=== PATIENT | male | born 1940 | race Caucasian/White ===

== ENCOUNTER 2016-07-31 12:13 | Outpatient (CLI) | payer MEDICARE, OTHER | END 2016-07-31 12:14 | disposition home or self-care (01) | DX: R07.2 Precordial pain (principal) ==

== ENCOUNTER 2016-08-27 16:05 | Outpatient (CLI) | payer MEDICARE, OTHER | END 2016-08-27 16:06 | disposition home or self-care (01) | DX: M19.012 Primary osteoarthritis, left shoulder (principal) ==

== ENCOUNTER 2016-12-24 10:15 | Outpatient (CLI) | payer MEDICARE, OTHER ==
[2016-12-24 19:07] LABS: ALBUMIN/GLOBULIN RATIO 1.7 (1.0-2.2); BILIRUBIN,TOTAL 0.8 mg/dL (0.2-1.0); BUN - BLOOD UREA NITROGEN 23 mg/dL (6-20); CALCIUM 9.3 mg/dL (8.5-10.3); CARBON DIOXIDE - CO2 23 mmol/L (21-32); CHLORIDE 109 mmol/L (101-111); CHOL/HDL RATIO 3.8 (<5.0); CHOLESTEROL 159 mg/dL; GFR - MDRD 72 (>89); GLUCOSE 99 mg/dL (70-100); HDL CHOLESTEROL 42 mg/dL; LDL/HDL RATIO 2.2 (<3.6); POTASSIUM 4.2 mmol/L (3.5-5.0); SODIUM 138 mmol/L (135-145); TRIGLYCERIDES 123 mg/dL; VLDL CHOLESTEROL 25 mg/dL
[2016-12-24 19:34] LABS: BASOPHILS # (AUTO) 0.1 10^3/uL (0.0-0.1); EOSINOPHILS # (AUTO) 0.1 10^3/uL (0.0-0.7); EOSINOPHILS % (AUTO) 2.5 %; HGB - HEMOGLOBIN 16.6 g/dL (14.0-18.0); LYMPHOCYTES # (AUTO) 1.3 10^3/uL (1.5-3.5); LYMPHOCYTES % (AUTO) 24.3 %; MEAN CORPUSCULAR HEMOGLOBIN 32.4 pg (27.0-31.0); MEAN CORPUSCULAR HGB CONC 33.3 g/dL (32.0-36.0); MEAN CORPUSCULAR VOLUME 97.3 fL (80.0-94.0); MEAN PLATELET VOLUME 9.5 fL (7.4-11.4); MONOCYTES # (AUTO) 0.4 10^3/uL (0.0-1.0); MONOCYTES % (AUTO) 7.5 %; NEUTROPHILS # (AUTO) 3.5 10^3/uL (1.5-6.6); NEUTROPHILS % (AUTO) 64.7 %; NUCLEATED RED BLOOD CELLS AUTO 0.1 /100WBC; RED BLOOD COUNT 5.14 10^6/uL (4.70-6.10); RED CELL DISTRIBUTION WIDTH 13.1 % (12.0-15.0); UNCORRECTED WHITE BLOOD COUNT 5.4 x10^3/uL; WHITE BLOOD COUNT 5.4 x10^3/uL (4.8-10.8)
== END 2016-12-24 10:16 | disposition home or self-care (01) ==
LOC: LAB.F 10:15
PROVIDERS: ATTEND Internal Medicine
DX: E78.2 Mixed hyperlipidemia (principal); Z79.899 Other long term (current) drug therapy
CPT/HCPCS: 36415; 80053; 80061; 85025

== ENCOUNTER 2017-02-14 08:19 | Outpatient (CLI) | payer MEDICARE, OTHER ==
[2017-02-14 11:38] LABS: LDL CHOLESTEROL,DIRECT 150 mg/dL
== END 2017-02-14 08:20 | disposition home or self-care (01) ==
LOC: LAB.F 08:19
PROVIDERS: ATTEND Internal Medicine
DX: E78.5 Hyperlipidemia, unspecified (principal)
CPT/HCPCS: 36415; 84450; 84460

== ENCOUNTER 2017-04-17 10:35 | Outpatient (CLI) | payer MEDICARE, OTHER ==
[2017-04-19 12:01] LABS: TEST RESULT REPORT
== END 2017-04-17 10:36 | disposition home or self-care (01) ==
LOC: LAB.R 10:35
PROVIDERS: ATTEND Physician Assistant Medical
DX: N48.9 Disorder of penis, unspecified (principal)
CPT/HCPCS: 81599; 87070; 87255

== ENCOUNTER 2018-02-18 09:40 | Outpatient (CLI) | payer MEDICARE, OTHER ==
[2018-02-18 20:35] LABS: BASOPHILS % (AUTO) 0.7 %; EOSINOPHILS # (AUTO) 0.1 10^3/uL (0.0-0.7); EOSINOPHILS % (AUTO) 2.4 %; HGB - HEMOGLOBIN 15.8 g/dL (14.0-18.0); LYMPHOCYTES % (AUTO) 19.2 %; MEAN CORPUSCULAR HEMOGLOBIN 34.2 pg (27.0-31.0); MEAN CORPUSCULAR HGB CONC 34.4 g/dL (32.0-36.0); MEAN CORPUSCULAR VOLUME 99.6 fL (80.0-94.0); MEAN PLATELET VOLUME 9.5 fL (7.4-11.4); MONOCYTES # (AUTO) 0.4 10^3/uL (0.0-1.0); MONOCYTES % (AUTO) 7.7 %; NEUTROPHILS # (AUTO) 3.7 10^3/uL (1.5-6.6); PLT - PLATELET COUNT 117 10^3/uL (130-450); RED CELL DISTRIBUTION WIDTH 13.3 % (12.0-15.0); WHITE BLOOD COUNT 5.2 x10^3/uL (4.8-10.8)
[2018-02-18 21:27] LABS: ALBUMIN 4.3 g/dL (3.2-5.5); ALBUMIN/GLOBULIN RATIO 1.7 (1.0-2.2); ALKALINE PHOSPHATASE 74 IU/L (42-121); ALT ALANINE AMINOTRANSFERASE 34 IU/L (10-60); AST ASPARTATE AMINOTRANSFERASE 27 IU/L (10-42); BILIRUBIN,TOTAL 0.9 mg/dL (0.2-1.0); BUN - BLOOD UREA NITROGEN 26 mg/dL (6-20); CALCIUM 9.3 mg/dL (8.5-10.3); CARBON DIOXIDE - CO2 23 mmol/L (21-32); CHLORIDE 109 mmol/L (101-111); CHOL/HDL RATIO 3.8 (<5.0); CHOLESTEROL 143 mg/dL; CREATININE 1.1 mg/dL (0.6-1.2); GFR - MDRD 65 (>89); GLUCOSE 99 mg/dL (70-100); HDL CHOLESTEROL 38 mg/dL; LDL CHOLESTEROL,CALCULATED 77 mg/dL; SODIUM 139 mmol/L (135-145); TOTAL PROTEIN 6.8 g/dL (6.7-8.2); VLDL CHOLESTEROL 28 mg/dL
== END 2018-02-18 09:41 | disposition home or self-care (01) ==
LOC: LAB.F 09:40
PROVIDERS: ATTEND Internal Medicine
DX: Z79.899 Other long term (current) drug therapy (principal); G45.4 Transient global amnesia; E78.5 Hyperlipidemia, unspecified; K21.9 Gastro-esophageal reflux disease without esophagitis
CPT/HCPCS: 36415; 80053; 80061; 83721; 85025

== ENCOUNTER 2018-12-30 15:13 | Emergency (ER) | payer MEDICARE, OTHER ==
--- NOTE | 2018-12-30 15:24 | ED Physician Documentation ---
History of Present Illness - Stated complaint Stated Complaint: AB PX - Chief complaint Chief Complaint: Abd Pain - History obtained from History obtained from: Patient - Additonal information Additional information: Patient is an 78-year-old male presenting with right lower quadrant pain worsening over the past 1 to 2 days. Patient denies associated fever, nausea, vomiting, urinary changes, or stool changes. Patient does describe pain as gas- like pain. Patient has seen his primary care physician who is concerned about possible appendicitis and sent patient to the ED for further evaluation. No other improving or worsening factors noted. Review of Systems Constitutional: denies: Fever GI: reports: Abdominal Pain. denies: Nausea, Vomiting, Diarrhea : denies: Dysuria PD PAST MEDICAL HISTORY - Past Medical History Cardiovascular: High cholesterol Respiratory: None Endocrine/Autoimmune: None GI: GERD, Hemorrhoids : Benign prostate hypertrophy HEENT: None Psych: Depression Musculoskeletal: Osteoarthritis - Past Surgical History Past Surgical History: Yes General: Colonoscopy, EGD, Other Ortho: Other HEENT: Tonsil/Adenoidectomy - Present Medications Home Medications: Ambulatory Orders Medication Instructions Recorded Confirmed Omeprazole [PriLOSEC] 20 mg PO DAILY 11/13/14 11/08/15 Aspirin [Adult Low Dose Aspirin EC] 81 mg PO DAILY 11/08/15 11/08/15 Atorvastatin Calcium 40 mg PO DAILY 11/08/15 11/08/15 Biotin 10,000 mcg PO DAILY 11/08/15 11/08/15 Gluc Crenshaw/Chondro Crenshaw A/Vit C/Mn 1 each PO DAILY 11/08/15 11/08/15 [Glucosamine-Chondroitin Cap] Multivitamin [Multivitamins] 1 each PO DAILY 11/08/15 11/08/15 Naproxen Sodium 440 mg PO DAILY 11/08/15 11/08/15 diphenhydrAMINE [Benadryl] 50 mg PO HS 11/08/15 11/08/15 - Allergies Allergies/Adverse Reactions: Allergies Allergy/AdvReac Type Severity Reaction Status Date / Time No Known Drug Allergies Allergy Verified 12/30/18 15:20 - Social History Does the pt smoke?: No Smoking Status: Never smoker Does the pt drink ETOH?: No Does the pt have substance abuse?: No - Immunizations Immunizations are current?: Yes PD ED PE NORMAL - Vitals Vital signs reviewed: Yes - General General: Alert and oriented X 3, No acute distress, Well developed/nourished - HEENT HEENT: Atraumatic, Moist mucous membranes - Neck Neck: Supple, no meningeal sign - Cardiac Cardiac: RRR, No murmur - Respiratory Respiratory: No respiratory distress, Clear bilaterally - Abdomen Abdomen: Normal bowel sounds, Soft, Non distended. No: Non tender (Extremely mild right lower quadrant tenderness, almost to the groin, not specifically McB urney's point tenderness. Negative rebound, guarding, Steven sign.) - Derm Derm: Normal color, Warm and dry, No rash - Extremities Extremities: No deformity, No tenderness to palpate - Neuro Neuro: Alert and oriented X 3, No motor deficit, No sensory deficit - Psych Psych: Normal affect Results - Vitals Vitals: Vital Signs - 24 hr 12/30/18 12/30/18 15:15 17:26 Temperature 36.9 C Heart Rate 80 55 L Respiratory 19 16 Rate Blood Pressure 139/79 H 166/89 H O2 Saturation 95 97 Oxygen O2 Source Room air - Labs Labs: Laboratory Tests 12/30/18 12/30/18 12/30/18 15:38 15:38 15:38 WBC 5.2 RBC 4.80 Hgb 15.4 Hct 46.5 MCV 96.9 H MCH 32.1 H MCHC 33.1 RDW 12.3 Plt Count 141 MPV 10.1 Neut # (Auto) 3.5 Lymph # (Auto) 1.2 L [place] # (Auto) 0.5 Eos # (Auto) 0.1 Baso # (Auto) 0.0 Absolute Nucleated RBC 0.00 Nucleated RBC % 0.0 Sodium 140 Potassium 4.0 Chloride 106 Carbon Dioxide 21 Anion Gap 13.0 BUN 17 Creatinine 0.9 Estimated GFR (MDRD) 81 L Glucose 97 Lactic Acid 0.6 Calcium 9.4 Total Bilirubin 1.5 H AST 23 ALT 28 Alkaline Phosphatase 98 Total Protein 7.4 Albumin 4.2 Globulin 3.2 Albumin/Globulin Ratio 1.3 Lipase 22 Urine Color Urine Clarity Urine pH Ur Specific [place] Urine Protein Urine Glucose (UA) Urine Ketones Urine Occult Blood Urine Nitrite Urine Bilirubin Urine Urobilinogen Ur Leukocyte Esterase Ur Microscopic Review Urine Culture Comments 12/30/18 17:36 WBC RBC Hgb Hct MCV MCH MCHC RDW Plt Count MPV Neut # (Auto) Lymph # (Auto) [place] # (Auto) Eos # (Auto) Baso # (Auto) Absolute Nucleated RBC Nucleated RBC % Sodium Potassium Chloride Carbon Dioxide Anion Gap BUN Creatinine Estimated GFR (MDRD) Glucose Lactic Acid Calcium Total Bilirubin AST ALT Alkaline Phosphatase Total Protein Albumin Globulin Albumin/Globulin Ratio Lipase Urine Color YELLOW Urine Clarity CLEAR Urine pH 7.0 Ur Specific [place] <=1.005 Urine Protein NEGATIVE Urine Glucose (UA) NEGATIVE Urine Ketones NEGATIVE Urine Occult Blood NEGATIVE Urine Nitrite NEGATIVE Urine Bilirubin NEGATIVE Urine Urobilinogen 0.2 (NORMAL) Ur Leukocyte Esterase NEGATIVE Ur Microscopic Review NOT INDICATED Urine Culture Comments NOT INDICATED PD MEDICAL DECISION MAKING - ED course Complexity details: reviewed results, re-evaluated patient, considered differential, d/w patient, d/w family ED course: Patient presenting with extremely mild right lower quadrant tenderness. Do have concern for possible appendicitis. Do not feel palpable inguinal hernia. Given patient's description of pain, may also be related to generalized gas discomfort, viral illness, gastroenteritis. Have lower suspicion for gallbladder disease, pancreatitis, small bowel obstruction, diverticulitis, AAA, renal disease, UTI, but considered. Patient comfortable did not require medications while in the ED. Screening lab work and urinalysis obtained which returned relatively unremarkable. CT imaging returned without evidence of acute pathology but incidental findings, which were reported to patient. At this time, patient is safe to discharge home. Discussed possible etiologies including musculoskeletal discomfort. Discussed other supportive cares, strict return precautions, and appropriate follow-up. Patient voiced understanding and is comfortable with discharge plan. Departure - Departure Disposition: 01 Home, Self Care Clinical Impression: Abdominal pain Qualifiers: Abdominal location: right lower quadrant Qualified Code(s): R10.31 - Right lower quadrant pain Condition: Good Instructions: ED Abdominal Pain Unkn Cause Male Follow-Up: your,doctor [Other] - Within 3 Days Comments: Recommend healthy diet, hydration, and follow-up with your primary care physician in next 2 to 3 days. May try ibuprofen/Tylenol, as well as heat application if pain persists. Return to ED sooner if experience worsening symptoms or have other concerns.
[2018-12-30 15:45] LABS: BASOPHILS % (AUTO) 0.8 %; EOSINOPHILS # (AUTO) 0.1 10^3/uL (0.0-0.7); EOSINOPHILS % (AUTO) 1.3 %; HGB - HEMOGLOBIN 15.4 g/dL (14.0-18.0); LYMPHOCYTES # (AUTO) 1.2 10^3/uL (1.5-3.5); LYMPHOCYTES % (AUTO) 22.3 %; MEAN CORPUSCULAR HEMOGLOBIN 32.1 pg (27.0-31.0); MEAN CORPUSCULAR HGB CONC 33.1 g/dL (32.0-36.0); MEAN CORPUSCULAR VOLUME 96.9 fL (80.0-94.0); MEAN PLATELET VOLUME 10.1 fL (7.4-11.4); MONOCYTES # (AUTO) 0.5 10^3/uL (0.0-1.0); MONOCYTES % (AUTO) 8.8 %; NEUTROPHILS # (AUTO) 3.5 10^3/uL (1.5-6.6); NEUTROPHILS % (AUTO) 66.4 %; PLT - PLATELET COUNT 141 10^3/uL (130-450); RED CELL DISTRIBUTION WIDTH 12.3 % (12.0-15.0); WHITE BLOOD COUNT 5.2 x10^3/uL (4.8-10.8)
[2018-12-30 16:04] LABS: CALCIUM 9.4 mg/dL (8.5-10.3); CREATININE 0.9 mg/dL (0.6-1.2)
[2018-12-30 16:05] LABS: ALBUMIN 4.2 g/dL (3.2-5.5); ALBUMIN/GLOBULIN RATIO 1.3 (1.0-2.2); BILIRUBIN,TOTAL 1.5 mg/dL (0.2-1.0); TOTAL PROTEIN 7.4 g/dL (6.7-8.2)
[2018-12-30] MEDS ORDERED: IOVERSOL 320 100 ML VIAL IVP ONE ×2 (16:19→17:37)
[2018-12-30 17:27] VITALS: BP 166/89
--- NOTE | 2018-12-30 17:30 | CT Report ---
Reason: RLQ pain without other symptoms Procedure Date: 12/30/2018 Accession Number: [id number] / [id number] Procedure: CT - Abdomen/Pelvis W CPT Code: FULL RESULT: EXAM: CT ABDOMEN AND PELVIS EXAM DATE: 12/30/2018 05:05 PM. CLINICAL HISTORY: RLQ pain without other symptoms. COMPARISONS: None. TECHNIQUE: Routine helical CT imaging was performed through the abdomen and pelvis. IV contrast: OPTI 320 100ML. Enteric contrast: No. Reconstructions: Coronal and sagittal. In accordance with CT protocol optimization, one or more of the following dose reduction techniques were utilized for this exam: automated exposure control, adjustment of mA and/or KV based on patient size, or use of iterative reconstructive technique. FINDINGS: Lung Bases: Bibasilar atelectasis and scarring. 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 Liver: Normal. No masses. Gallbladder/Bile Ducts: Unremarkable. Spleen: Normal. Pancreas: Normal. Adrenal Glands: Normal. Kidneys: A 1 cm exophytic simple cyst in mid polar region of right kidney. A 7 mm hypodense lesion in mid polar region of left kidney is too small to characterize. No concerning masses or hydronephrosis. Peritoneal Cavity/Bowel: Normal. No free fluid, free air or adenopathy. No masses or acute inflammatory process. Diffuse colonic diverticulosis however no diverticular wrist. The appendix is well visualized and normal. Pelvic Organs: Normal. The bladder and visualized pelvic organs are within normal limits. Vasculature: No aneurysms or other significant abnormality. Bones: No significant abnormality. Other: None. IMPRESSION: Diffuse colonic diverticulosis however no diverticulitis. Normal appendix. No acute abdominal pathology. Simple cyst in right kidney. RADIA
[2018-12-30 17:44] LABS: BILIRUBIN,URINE NEGATIVE (NEGATIVE); GLUCOSE, URINE (UA) NEGATIVE (NEGATIVE); KETONES,URINE (UA) NEGATIVE (NEGATIVE); LEUKOCYTE ESTERASE, URINE NEGATIVE (NEGATIVE); NITRITE,URINE NEGATIVE (NEGATIVE); OCCULT BLOOD,URINE NEGATIVE (NEGATIVE); PROTEIN,URINE NEGATIVE (NEGATIVE); UROBILINOGEN,URINE 0.2 (NORMAL) E.U./dL (NORMAL)
[2018-12-30 17:45] LABS: CLARITY,URINE CLEAR (CLEAR)
== END 2018-12-30 18:00 | disposition home or self-care (01) ==
LOC: ED 15:13
DX: R10.31 Right lower quadrant pain (principal); K57.30 Diverticulosis of large intestine without perforation or abscess without bleeding; N28.1 Cyst of kidney, acquired; K21.9 Gastro-esophageal reflux disease without esophagitis; Z79.82 Long term (current) use of aspirin
CPT/HCPCS: 36415; 74177; 80053; 81003; 83605; 83690; 85025; 99284; Q9967; 81001; 87086

== ENCOUNTER 2019-03-22 08:51 | Outpatient (CLI) | payer MEDICARE, OTHER ==
[2019-03-22 17:35] LABS: ALBUMIN/GLOBULIN RATIO 1.4 (1.0-2.2); ALKALINE PHOSPHATASE 87 IU/L (42-121); ALT ALANINE AMINOTRANSFERASE 29 IU/L (10-60); AST ASPARTATE AMINOTRANSFERASE 29 IU/L (10-42); BILIRUBIN,TOTAL 0.9 mg/dL (0.2-1.0); BUN - BLOOD UREA NITROGEN 22 mg/dL (6-20); CALCIUM 9.3 mg/dL (8.5-10.3); CARBON DIOXIDE - CO2 27 mmol/L (21-32); CHLORIDE 106 mmol/L (101-111); CHOL/HDL RATIO 5.7 (<5.0); CHOLESTEROL 221 mg/dL; GFR - MDRD 72 (>89); GLUCOSE 94 mg/dL (70-100); HDL CHOLESTEROL 39 mg/dL; LDL CHOLESTEROL,CALCULATED 154 mg/dL; LDL/HDL RATIO 3.9 (<3.6); SODIUM 140 mmol/L (135-145); TOTAL PROTEIN 6.9 g/dL (6.7-8.2); VLDL CHOLESTEROL 28 mg/dL
== END 2019-03-22 08:52 | disposition home or self-care (01) ==
LOC: LAB.S 08:51
PROVIDERS: ATTEND Internal Medicine
DX: E78.5 Hyperlipidemia, unspecified (principal)
CPT/HCPCS: 36415; 80053; 80061; 83721

== ENCOUNTER 2020-11-14 11:41 | Emergency (ER) | payer MEDICARE, OTHER ==
--- NOTE | 2020-11-14 12:24 | ED Physician Documentation ---
History of Present Illness - Stated complaint Stated Complaint: GLF/SENT BY DOCTOR - Chief complaint Chief Complaint: Neuro - History obtained from History obtained from: Patient - History of Present Illness Timing: Enter time (07:45), Today - Additonal information Additional information: 80-year-old male got up and did his usual routine in the morning including having 3 cups of coffee. He was sitting in his easy chair and had been in and out of the easy chair in the morning and he had been sitting there for about 40 minutes when he went to get up he noted weakness to the left leg he was uncoordinated and collapsed. He got himself up and raised himself to a full standing position at his treadmill and at that time he had use of his leg. He states that he has had full recovery and felt that during this episode he did not have control of his left lower extremity. He denies any current symptoms. 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 He was worked up at the [facility]. He is also had a episode of amaurosis fugax 10 years ago. Review of Systems Constitutional: denies: Fever Eyes: denies: Decreased vision Ears: denies: Ear pain Nose: denies: Congestion Throat: denies: Sore throat Cardiac: denies: Chest pain / pressure, Palpitations Respiratory: denies: Dyspnea, Cough GI: denies: Abdominal Pain, Nausea, Vomiting : denies: Dysuria, Frequency Skin: denies: Rash Musculoskeletal: denies: Neck pain, Back pain, Extremity pain Neurologic: reports: Focal weakness (resolved), Near syncope, Headache. denies: Generalized weakness, Numbness, Difficulty speaking, Syncope, Seizure, Confused, Altered mental status, Head injury, LOC Psychiatric: denies: Depressed, Suicidal PD PAST MEDICAL HISTORY - Past Medical History Cardiovascular: High cholesterol Respiratory: None Endocrine/Autoimmune: None GI: GERD, Hemorrhoids : Benign prostate hypertrophy HEENT: None Psych: Depression Musculoskeletal: Osteoarthritis - Past Surgical History Past Surgical History: Yes General: Colonoscopy, EGD, Other Ortho: Other HEENT: Tonsil/Adenoidectomy - Present Medications Home Medications: Ambulatory Orders Medication Instructions Recorded Confirmed Omeprazole [PriLOSEC] 20 mg PO DAILY 11/13/14 11/08/15 Aspirin [Adult Low Dose Aspirin EC] 81 mg PO DAILY 11/08/15 11/08/15 Atorvastatin Calcium 40 mg PO DAILY 11/08/15 11/08/15 Biotin 10,000 mcg PO DAILY 11/08/15 11/08/15 Gluc Crenshaw/Chondro Crenshaw A/Vit C/Mn 1 each PO DAILY 11/08/15 11/08/15 [Glucosamine-Chondroitin Cap] Multivitamin [Multivitamins] 1 each PO DAILY 11/08/15 11/08/15 Naproxen Sodium 440 mg PO DAILY 11/08/15 11/08/15 diphenhydrAMINE [Benadryl] 50 mg PO HS 11/08/15 11/08/15 - Allergies Allergies/Adverse Reactions: Allergies Allergy/AdvReac Type Severity Reaction Status Date / Time No Known Drug Allergies Allergy Verified 12/30/18 15:20 - Social History Does the pt smoke?: No Smoking Status: Never smoker Does the pt drink ETOH?: No Does the pt have substance abuse?: No - Immunizations Immunizations are current?: Yes PD ED PE NORMAL - Vitals Vital signs reviewed: Yes (hypertensive ) - General General: Alert and oriented X 3, No acute distress, Well developed/nourished - HEENT HEENT: Atraumatic, PERRL, EOMI - Neck Neck: Supple, no meningeal sign, No bony TTP - Cardiac Cardiac: RRR, No murmur - Respiratory Respiratory: No respiratory distress, Clear bilaterally - Abdomen Abdomen: Normal bowel sounds, Soft, Non tender, Non distended, No organomegaly - Back Back: No CVA TTP, No spinal TTP - Derm Derm: Normal color, Warm and dry, No rash - Extremities Extremities: No deformity, No edema - Neuro Neuro: Alert and oriented X 3, 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, No motor deficit, No sensory deficit, Normal speech Eye Opening: Spontaneous Motor: Obeys Commands Verbal: Oriented GCS Score: 15 - Psych Psych: Normal mood, Normal affect Results - Vitals Vitals: Vital Signs - 24 hr 11/14/20 11/14/20 11/14/20 11:49 14:13 15:30 Temperature 36.3 C L 36.1 C L Heart Rate 73 66 79 Respiratory 16 16 16 Rate Blood Pressure 149/61 H 134/81 H 136/77 H O2 Saturation 94 96 98 Oxygen O2 Source Room air - EKG (time done) 1212 Rate: Rate (enter#) (63) Rhythm: NSR Intervals: Other (early transition) QRS: Low voltage Compare to prior EKG: Old EKG unavailable Computer interpretation: Agree with computer - Labs Labs: Laboratory Tests 11/14/20 11/14/20 11/14/20 13:20 13:20 13:20 WBC 5.5 RBC 5.12 Hgb 16.6 Hct 49.3 MCV 96.3 H MCH 32.4 H MCHC 33.7 RDW 12.3 Plt Count 131 MPV 10.3 Neut # (Auto) 3.9 Lymph # (Auto) 1.1 L [place] # (Auto) 0.4 Eos # (Auto) 0.1 Baso # (Auto) 0.0 Absolute Nucleated RBC 0.00 Nucleated RBC % 0.0 Manual Slide Review Not Indicated Sodium 141 Potassium 4.1 Chloride 106 Carbon Dioxide 25 Anion Gap 10.0 BUN 24 H Creatinine 1.0 Estimated GFR (MDRD) 72 L Glucose 89 Calcium 9.3 Total Bilirubin 1.2 H AST 28 ALT 36 Alkaline Phosphatase 100 Troponin I High Sens 8.8 Total Protein 7.2 Albumin 4.5 Globulin 2.7 Albumin/Globulin Ratio 1.7 Lipase 29 - Rads (name of study) head CT Radiology: Prelim report reviewed (Impression: 1. No acute CT evidence of acute intracranial pathology. Age-appropriate atrophy and moderate white matter chronic small vessel ischemic changes.), EMP read indepedently, See rad report Procedures - IVC sono (time) 1248 Bedside IVC sono: IVC measures (cm) (0.90), IVC collapsed c insp (cm) (complete), Dehydration (est 2 liter deficit.) PD MEDICAL DECISION MAKING - ED course Complexity details: reviewed old records, reviewed results, re-evaluated patient, considered differential, d/w patient, d/w family ED course: 80-year-old male with a history of a prior episode of TIA involving his eyes has had a work-up done at the [facility] approximately 12 years ago. Today he has had a transient ischemic attack affecting his left leg and lasting minutes. He has resolution of his symptoms and on evaluation with interrogation of the IVC he is found to be dehydrated. Is administered intravenous saline and with shared decision making the patient is wanting to go home versus hospitalization. I have explained to the patient that the standard of care is hospitalization for a TIA and he feels comfortable that his TIA has an explanation. He has had prior stroke work-up.I have asked the patient to repeat the carotid studies as disease can progress in 12 years. Departure - Departure Disposition: 01 Home, Self Care Clinical Impression: TIA (transient ischemic attack), Dehydration determined by examination Condition: Stable Instructions: ED Dehydration, ED Transient Ischemic Attack Follow-Up: Azael Rich MD [Primary Care Provider] - Comments: Today it appears the brief TIA you had is related to your level of dehydration. You have had prior work-up for TIA and the recommendation is to repeat the carotid evaluation. Follow-up with Dr. Rich to have this done as an outpatient. Discharge Date/Time: 11/14/20 15:31 NIHSS - Time Time: 12:40 - Level of Consciousness Level of consciousness: (0) Alert, Keenly responsive LOC Questions: (0) Answers both Q's correct LOC Commands: (0) Performs both correctly - Gaze Best Gaze: (0) Normal - Visual Visual: (0) No loss - Facial Palsy Facial Palsy: (0) Normal, symmetrical movement - Motor Arms (both separate) Motor Arm (right): (0) No drift Motor Arm (left): (0) No drift - Motor Legs (both separate) Motor Leg (right): (0) No drift Motor Leg (left): (0) No drift - Limb Ataxia Limb Ataxia: (0) Absent - Sensory Sensory: (0) Normal - Best Language Best Language: (0) No aphasia - Dysarthria Dysarthria: (0) Normal - Extinction and Inattention (formally neg Extinction and inattention: (0) No abnormality - Total Score/Results Total Score/Result: 0
--- OUTSIDE RECORDS SUMMARY | 2020-11-14 12:32 | EXTERNAL MEDICAL SUMMARY RPT | Continuity of Care Document ---
:1940 Demographics Phone Unavailable Preferred Language Unknown Marital Status Unknown Nondenominational Affiliation Unknown Race Unknown Ethnic Group Unknown Author Organization [place] Address [address] [id number] Phone Allergies Encounters Medications Problems Results
[2020-11-14] MEDS ORDERED: SODIUM CHLORIDE 0.9% 1,000 ML IV STA (12:52)
--- NOTE | 2020-11-14 13:14 | CT Report ---
PROCEDURE: HEAD WO INDICATIONS: L leg weakness TECHNIQUE: Noncontrast 4.5 mm thick angled axial sections acquired from the foramen magnum to the vertex. For r adiation dose reduction, the following was used: automated exposure control, adjustment of mA and/or kV according to patient size. COMPARISON: None. FINDINGS: Image quality: Excellent. CSF spaces: Basal cisterns are patent. No extra-axial fluid collections. The ventricles are symmet tien in size and shape. Brain: No intracranial bleeds or masses. There is cerebral volume loss for age, with resultant vent ricular and sulcal prominence. There are periventricular and deep white matter chronic small vessel ischemic changes. There is intracranial internal carotid artery atherosclerosis. Skull and face: Calvarium and visualized facial bones appear intact, without suspicious lesions. Sinuses: Visualized sinuses and mastoids are clear. IMPRESSION: 1. No CT evidence of acute intracranial pathology. 2. Age-appropriate atrophy and moderate white matter chronic small vessel ischemic changes. Reviewed by: Homero Conrad MD on 11/14/2020 1:13 PM PDT Approved by: Homero Conrad MD on 11/14/2020 1:13 PM PDT Station ID: [id number]
[2020-11-14 13:32] LABS: HGB - HEMOGLOBIN 16.6 g/dL (14.0-18.0); RED BLOOD COUNT 5.12 10^6/uL (4.70-6.10); WHITE BLOOD COUNT 5.5 x10^3/uL (4.8-10.8)
[2020-11-14 13:34] LABS: HCT - HEMATOCRIT 49.3 % (42.0-52.0)
[2020-11-14 13:35] LABS: EOSINOPHILS % (AUTO) 1.3 %; LYMPHOCYTES % (AUTO) 19.4 %; MEAN CORPUSCULAR HEMOGLOBIN 32.4 pg (27.0-31.0); MEAN CORPUSCULAR HGB CONC 33.7 g/dL (32.0-36.0); MEAN CORPUSCULAR VOLUME 96.3 fL (80.0-94.0); MEAN PLATELET VOLUME 10.3 fL (7.4-11.4); NEUTROPHILS % (AUTO) 70.4 %; PLT - PLATELET COUNT 131 10^3/uL (130-450); RED CELL DISTRIBUTION WIDTH 12.3 % (12.0-15.0)
[2020-11-14 13:36] LABS: BASOPHILS % (AUTO) 0.5 %; EOSINOPHILS # (AUTO) 0.1 10^3/uL (0.0-0.7); LYMPHOCYTES # (AUTO) 1.1 10^3/uL (1.5-3.5); MONOCYTES # (AUTO) 0.4 10^3/uL (0.0-1.0); NEUTROPHILS # (AUTO) 3.9 10^3/uL (1.5-6.6); SLIDE REVIEW? Not Indicated
[2020-11-14 13:45] LABS: ALBUMIN 4.5 g/dL (3.2-5.5); ALBUMIN/GLOBULIN RATIO 1.7 (1.0-2.2); BILIRUBIN,TOTAL 1.2 mg/dL (0.2-1.0); CALCIUM 9.3 mg/dL (8.5-10.3); POTASSIUM 4.1 mmol/L (3.5-5.0); TOTAL PROTEIN 7.2 g/dL (6.7-8.2)
[2020-11-14 15:30] VITALS: BP 136/77
== END 2020-11-14 15:31 | disposition home or self-care (01) ==
LOC: ED 11:41
DX: G45.9 Transient cerebral ischemic attack, unspecified (principal); E86.0 Dehydration; Z79.82 Long term (current) use of aspirin
CPT/HCPCS: 36415; 80053; 83690; 84484; 85025; 93005; 96360; 96361; 99285

== ENCOUNTER 2020-11-27 16:35 | Outpatient (CLI) | payer MEDICARE, OTHER ==
[2020-11-27 20:07] LABS: ALBUMIN 4.3 g/dL (3.2-5.5); ALBUMIN/GLOBULIN RATIO 1.7 (1.0-2.2); BILIRUBIN,TOTAL 0.6 mg/dL (0.2-1.0); CALCIUM 9.2 mg/dL (8.5-10.3); POTASSIUM 4.2 mmol/L (3.5-5.0); TOTAL PROTEIN 6.8 g/dL (6.7-8.2)
== END 2020-11-27 16:36 | disposition home or self-care (01) ==
LOC: LAB.S 16:35
PROVIDERS: ATTEND Physician Assistant
DX: E86.0 Dehydration (principal)
CPT/HCPCS: 36415; 80053

== ENCOUNTER 2020-12-28 06:59 | Outpatient (CLI) | payer MEDICARE, OTHER ==
--- NOTE | 2020-12-28 16:00 | Ultrasound Report ---
PROCEDURE: Carotid Doppler Complete INDICATIONS: DEHYDRATION/TIA TECHNIQUE: Color and pulse Doppler interrogation was performed of both carotid systems, with image documentation and velocity measurements. COMPARISON: None. FINDINGS: Right side: Brachial blood pressure: 137/76 mm Hg. Common carotid artery peak systolic velocity: 60 cm/sec. Internal carotid artery peak systolic velocity: 79 cm/sec. Internal carotid artery end diastolic velocity: 24 cm/sec. External carotid artery peak systolic velocity: 95 cm/sec. ICA/CCA peak systolic ratio: 1.3 . Gurrola scale imaging description: Minimal plaque at the bifurcation. Percent internal carotid artery stenosis: Less than 50% . Vertebral artery: Flow direction is antegrade. Left side: Brachial blood pressure: 141/72 mm Hg. Common carotid artery peak systolic velocity: 77 cm/sec. Internal carotid artery peak systolic velocity: 84 cm/sec. Internal carotid artery end diastolic velocity: 28 cm/sec. External carotid artery peak systolic velocity: 102 cm/sec. ICA/CCA peak systolic ratio: 1.1 . Gurrola scale imaging description: Minimal plaque at the bifurcation. Percent internal carotid artery stenosis: Less than 50% . Vertebral artery: Flow direction is antegrade. IMPRESSION: Less than 50% stenosis of the internal carotid arteries bilaterally. The estimate of stenosis included in the report of the imaging study was calculated using the NASCET method Reviewed by: Jeannie Naranjo MD on 12/28/2020 3:59 PM PDT Approved by: Jeannie Naranjo MD on 12/28/2020 3:59 PM PDT Station ID: [id number]
--- NOTE | 2020-12-28 17:05 | Ultrasound Report ---
PROCEDURE: Duplex Aorta Limited INDICATIONS: DEHYDRATION TECHNIQUE: Limited assessment of the inferior vena cava was obtained, with image documentation. COMPARISON: None. FINDINGS: Limited exam demonstrating patency of the inferior vena cava which measures up to 2.0 cm. Normal phas icity is noted with respiration and Doppler assessment. IMPRESSION: Grossly normal appearance of the visualized portions of the inferior vena cava. Reviewed by: AUDRA Barth on 12/28/2020 5:04 PM PDT Approved by: Jeannie Naranjo MD on 12/28/2020 5:04 PM PDT Station ID: [id number]
== END 2020-12-28 07:00 | disposition home or self-care (01) ==
LOC: DI 06:59
PROVIDERS: ATTEND Physician Assistant
DX: E86.0 Dehydration (principal); G45.9 Transient cerebral ischemic attack, unspecified
CPT/HCPCS: 93880; 93979

== ENCOUNTER 2023-12-17 15:38 | Outpatient (CLI) | payer MEDICARE, OTHER ==
--- NOTE | 2023-12-17 22:01 | Ultrasound Report ---
PROCEDURE: Carotid Doppler Complete INDICATIONS: BALANCE PROBLEMS TECHNIQUE: Color and pulse Doppler interrogation was performed of both carotid systems, with image documentation and velocity measurements. COMPARISON: Carotid ultrasound 12/28/2020. FINDINGS: Right side: Brachial blood pressure: 129/71 mm Hg. Common carotid artery peak systolic velocity: 74 cm/sec. Internal carotid artery peak systolic velocity: 89 cm/sec. Internal carotid artery end diastolic velocity: 24 cm/sec. External carotid artery peak systolic velocity: 119 cm/sec. ICA/CCA peak systolic ratio: 1.2 . Gurrola scale imaging description: Mild atherosclerotic plaque. Percent internal carotid artery stenosis: Less than 50 percent stenosis. Vertebral artery: Flow direction is antegrade. Left side: Brachial blood pressure: 117/69 mm Hg. Common carotid artery peak systolic velocity: 73 cm/sec. Internal carotid artery peak systolic velocity: 96 cm/sec. Internal carotid artery end diastolic velocity: 24 cm/sec. External carotid artery peak systolic velocity: 1 5 cm/sec. ICA/CCA peak systolic ratio: 1.3 . Gurrola scale imaging description: Mild atherosclerotic plaque. Percent internal carotid artery stenosis: Less than 50 percent stenosis. Vertebral artery: Flow direction is antegrade. IMPRESSION: 1. In the right internal carotid artery, there is less than 50 percent stenosis based on peak systoli c velocity criteria. 2. In the left internal carotid artery, there is less than 50 percent stenosis based on peak systolic velocity criteria. 3. Antegrade blood flow within the right vertebral artery. 4. Antegrade blood flow within the left vertebral artery. 5. Findings appear similar when compared to the ultrasound from 12/28/2020. The estimate of stenosis included in the report of the imaging study was calculated using the [facility]-end orsed standards of carotid artery stenosis. Reviewed by: Dave Graff MD on 12/17/2023 9:59 PM PDT Approved by: Dave Graff MD on 12/17/2023 9:59 PM PDT Station ID: [id number]
== END 2023-12-17 15:39 | disposition home or self-care (01) ==
LOC: DI 15:38
PROVIDERS: ATTEND Internal Medicine
DX: R26.81 Unsteadiness on feet (principal); E78.5 Hyperlipidemia, unspecified; I65.23 Occlusion and stenosis of bilateral carotid arteries
CPT/HCPCS: 93880